=== PATIENT | female | born 1955 | race African-American/Black ===

== ENCOUNTER 2020-08-22 04:35 | Day surgery (SDC) | payer OTHER ==
[2020-08-15 14:02] VITALS: BMI 31.7
[2020-08-22 09:19] VITALS: TEMP 97.7
[2020-08-22 10:56] VITALS: BP 120/66; PULSE 74
== END 2020-08-22 11:30 | disposition home or self-care (01) ==
LOC: JASU-ENDO 04:35
PROVIDERS: ATTEND Internal Medicine Gastroenterology
PROC: 0DBP8ZX Excision of Rectum, Via Natural or Artificial Opening Endoscopic, Diagnostic (ICD-10-PCS; principal; 2020-08-22 09:00)
DX: K62.1 Rectal polyp (principal); K57.30 Diverticulosis of large intestine without perforation or abscess without bleeding; K64.8 Other hemorrhoids
CPT/HCPCS: 88305-TC